=== PATIENT | female | born 1935 | race African-American/Black ===

== ENCOUNTER 2016-06-01 12:15 | Inpatient (IN) | payer MEDICARE, MEDICAID ==
[2016-06-01 14:36] LABS: LYMPHOCYTES # (AUTO) 1.7 X10^3/uL (1.3-2.9); MEAN CORPUSCULAR HEMOGLOBIN 27.6 pg (27.0-34.0)
[2016-06-01 14:45] LABS: HEMOGLOBIN A1C 6.6 % (4.5-6.2)
[2016-06-01 14:47] LABS: ALANINE AMINOTRANSFERASE 18 Units/L (12-78); ALBUMIN 3.4 g/dL (3.4-5.0); ALKALINE PHOSPHATASE 40 Units/L (46-116); ASPARTATE AMINO TRANSFERASE 17 Units/L (15-37); BLOOD UREA NITROGEN 20 mg/dL (7-18); CALCIUM 8.6 mg/dL (8.5-10.1); CARBON DIOXIDE 31.3 mmol/L (21-32); CHLORIDE 103 mmol/L (98-107); COR NA(FOR HYPERGLY) 145 mmol/L (136-145); CREATININE 1.46 mg/dL (0.55-1.02); GLUCOSE 219 mg/dL (65-99); MAGNESIUM 1.7 mg/dL (1.7-2.9); SODIUM 142 mmol/L (136-145); TOTAL PROTEIN 7.3 g/dL (6.4-8.2); eGFR BLACK RACES 45 (>60); eGFR NON BLACK RACES 37 (>60)
[2016-06-01] MEDS: NS 1000 ML 1,000 ML IV SCH (14:49)
[2016-06-01 15:03] LABS: BASOPHILS # (AUTO) 0.1 X10^3/uL (0.0-0.1); MEAN CORPUSCULAR VOLUME 84.9 fL (80.0-100.0); MONOCYTES # (AUTO) 0.5 x10^3/uL (0.3-0.8)
[2016-06-01 15:44] LABS: BASOPHILS % (AUTO) 1.2 % (0.2-1.0); EOSINOPHILS % (AUTO) 0.1 % (0.9-2.9); HEMATOCRIT 37.4 % (36.0-47.0); HEMOGLOBIN 12.1 g/dL (12.0-16.0); LYMPHOCYTES % (AUTO) 23.1 % (21.0-51.0); MEAN CORPUSCULAR HGB CONC 32.4 g/dL (33.0-35.0); MONOCYTES % (AUTO) 7.3 % (0.0-13.0); NEUTROPHILS # (AUTO) 5.1 x10^3/uL (2.2-4.8); NEUTROPHILS % (AUTO) 68.3 % (42.0-75.0); PLATELET COUNT 143 X10^3/uL (150.0-450.0); RED CELL DISTRIBUTION WIDTH 14.4 % (11.6-16.5); WHITE BLOOD COUNT 7.5 X10^3/uL (3.6-10.0)
[2016-06-01] MEDS: HumuLIN R SUBCUT PRN ×2 (16:49→20:42)
[2016-06-01] MEDS: SNACK - Diabetic Appropriate PO SCH (20:44)
[2016-06-02] MEDS: NS 1000 ML 1,000 ML IV SCH ×2 (04:58→14:07)
[2016-06-02 05:17] LABS: BASOPHILS % (AUTO) 0.3 % (0.2-1.0); EOSINOPHILS # (AUTO) 0.1 x10^3/uL (0.0-0.2); EOSINOPHILS % (AUTO) 1.1 % (0.9-2.9); LYMPHOCYTES # (AUTO) 2.8 X10^3/uL (1.3-2.9); LYMPHOCYTES % (AUTO) 38.8 % (21.0-51.0); MEAN CORPUSCULAR HGB CONC 33.2 g/dL (33.0-35.0); MEAN CORPUSCULAR VOLUME 84.3 fL (80.0-100.0); MEAN PLATELET VOLUME 11.1 fL (7.4-11.0); MONOCYTES # (AUTO) 0.6 x10^3/uL (0.3-0.8); MONOCYTES % (AUTO) 8.3 % (0.0-13.0); NEUTROPHILS # (AUTO) 3.7 x10^3/uL (2.2-4.8); NEUTROPHILS % (AUTO) 51.5 % (42.0-75.0); PLATELET COUNT 121 X10^3/uL (150.0-450.0); RED BLOOD COUNT 3.56 X10^6/uL (3.5-5.4); RED CELL DISTRIBUTION WIDTH 14.4 % (11.6-16.5); WHITE BLOOD COUNT 7.1 X10^3/uL (3.6-10.0)
[2016-06-02 05:45] LABS: ALANINE AMINOTRANSFERASE 16 Units/L (12-78); ALKALINE PHOSPHATASE 30 Units/L (46-116); ASPARTATE AMINO TRANSFERASE 17 Units/L (15-37); BLOOD UREA NITROGEN 21 mg/dL (7-18); CARBON DIOXIDE 26.2 mmol/L (21-32); CHLORIDE 105 mmol/L (98-107); COR CA(FOR HYPOALB) 8.8 mg/dL (8.5-10.1); CREATININE 0.97 mg/dL (0.55-1.02); GLUCOSE 97 mg/dL (65-99); SODIUM 141 mmol/L (136-145); TOTAL PROTEIN 6.2 g/dL (6.4-8.2); eGFR BLACK RACES > 60 (>60); eGFR NON BLACK RACES 59 (>60)
[2016-06-02] MEDS: HumuLIN R SUBCUT PRN ×3 (05:46→20:52)
--- NOTE | 2016-06-02 08:41 | DR.H&P ---
H&P - History & Physical for Day of: H&P Date: 06/08/16 - Chief Complaint Chief Complaint: WEAKNESS, DEHYDRATION, ATYPICAL BEHAVIOR CHANGES/AMS - Allergies Allergies/Adverse Reactions: Allergies Allergy/AdvReac Type Severity Reaction Status Date / Time No Known Drug Allergy Allergy Verified 06/01/16 13:56 - History of Present Illness History of Present Illness: 80 BF DIRECT ADMIT FROM DR WRAY OFFICE WITH CO GENERALIZED WEAKNESS AND MILD MS CHANGES. PT HAS HAD SOME GENERALIZED ABDOMINAL PAIN AND DIARRHEA. 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 PT HAS RECENTLY DECLINED BOTH PHYSICALLY AND MENTALLY. PT HAS DIFFUSE WEAKNESS AND POOR MOBILITY AND DECREASED PO INTAKE. PLAN TO ADMIT FOR EVALUAITON OF ACUTE WEAKNESS AND AMS, DISCUSSED PLACEMENT IN SENIOR CARE FOR REHAB THERAPY - Past Medical History Past Medical History: Anxiety, Arthritis, GERD, Hypertension, Schizophrenia - Past Surgical History Surgical History: Unknown - Social History Does patient currently use any type of tobacco product: No Have you used tobacco products in the last 12 months: No Type of Tobacco Use: Cigarettes How many years tobacco product used: 5 Does any household member use tobacco: No Alcohol Use: None Drug Use: Prescription Drugs - Medications Home Medications: Allopurinol [ZYLOPRIM tab 100 mg *] 1 tab PO DAILY 06/01/16 [History Confirmed 06/01/16] Cetirizine HCl [Zyrtec Allergy] 1 tab PO DAILY 06/01/16 [History Confirmed 06/01] Docusate Sodium [Colace] 1 tab PO DAILY 06/01/16 [History Confirmed 06/01/16] Donepezil Hydrochloride [ARICEPT TAB 10 MG *] 1 tab PO DAILY 06/01/16 [History Confirmed 06/01/16] Gabapentin [NEURONTIN CAP 300 mg *] 1 tab PO TID 06/01/16 [History Confirmed 12/08] Glimepiride [Amaryl] 2 tab PO BID 06/01/16 [History Confirmed 06/01/16] Hydrocodone-Acetaminophen [[place]ier 5-325 mg] 1 tab PO PRN PRN 06/01/16 [History Confirmed 06/01/16] Levothyroxine Sodium [SYNTHROID 25 mcg *] 1 tab PO DAILY 06/01/16 [History Confirmed 06/01/16] Lisinopril [Lisinopril] 1 tab PO DAILY 06/01/16 [History Confirmed 06/01/16] Omeprazole [PRILOSEC 20 MG *] 1 tab PO DAILY 06/01/16 [History Confirmed ] Risperidone [Risperidone] 1 tab PO DAILY 06/01/16 [History Confirmed 06/01/16] Simvastatin [ZOCOR 20 MG *] 1 tab PO BID 06/01/16 [History Confirmed 06/01/16] Tolterodine Tartrate [DETROL LA 4 MG EXT REL CAP *] 1 tab PO DAILY 06/01/16 [ History Confirmed 06/01/16] - Review of Systems Constitutional: Weakness Eyes: No Symptoms Reported ENT: No Symptoms Reported Respiratory: Shortness of Breath Cardiovascular: Light Headedness Gastrointestinal: Abdominal Pain, Diarrhea Genitourinary: Frequency Musculoskeletal: Back Pain Neurological: Weakness, Confusion - Physical Exam Vital Signs: Temperature 98.3 F Pulse Rate [Left Brachial] 68 Respiratory Rate 18 Blood Pressure [Left Arm] 135/62 O2 Sat by Pulse Oximetry 93 Oriented: Person Eyes: Normal Ear: Normal Nose: Normal Throat: Dry Respiratory: RLL Diminished, LLL Diminished Cardiovascular: Normal : Normal Auscultation: Bowel Sounds: Normal Palpation: Normal Tenderness: Epigastric Skin: Decreased Turgur Musculoskeletal: Back:Thoracic, Back:Lumbar Affect: Anxious Speech Pattern: Inappropriate - Assessment/Plan (1) Abdominal pain Qualifiers: Abdominal location: A Status: Acute Plan: ADMIT, LABS, XRAY. URINE CULTURE, IV ATBX AND IV HYDRATION. STOOL STUDIES. MONITOR (2) Diarrhea Qualifiers: Diarrhea type: D Status: Acute (3) Weakness Status: Acute Plan: SUPPORTIVE CARE, PT, DISCUSSED SENIOR CARE PLACEMENT (4) Altered mental status Qualifiers: Altered mental status type: A Coma depth: C Coma timing: C Status: Acute Plan: R/O INFECTIOUS PROCESS, IV HYDRATION, SUPPORTIVE CARE, PT
[2016-06-02] MEDS: PriLOSEC PO SCH (09:57)
[2016-06-02] MEDS: ZESTRIL TAB 40 MG PO SCH (09:57)
[2016-06-02] MEDS: ZOCOR TAB 20 MG PO SCH ×2 (09:57→20:45)
[2016-06-02] MEDS: RisperDAL TAB 1 MG PO SCH (09:57)
[2016-06-02] MEDS: SYNTHROID 25 mcg TAB PO SCH (09:57)
[2016-06-02] MEDS: ARICEPT TAB 10 MG PO SCH (09:57)
[2016-06-02 13:20] LABS: BILIRUBIN,URINE NEGATIVE (NEGATIVE); BLOOD/HEMOGLOBIN,URINE NEGATIVE (NEGATIVE); GLUCOSE, URINE NEGATIVE (NEGATIVE); KETONES,URINE NEGATIVE (NEGATIVE); LEUKOCYTE ESTERASE ,URINE 1+ (NEGATIVE); NITRITES,URINE NEGATIVE (NEGATIVE); PH,URINE 6.5 (5.0 - 8.0); PROTEIN,URINE NEGATIVE (NEGATIVE); UROBILINOGEN,URINE NORMAL (NORMAL)
[2016-06-02 13:27] LABS: AMORPHOUS SEDIMENT,UR TRACE /HPF (NEGATIVE); APPEARANCE,URINE CLEAR (CLEAR); BACTERIA,URINE NEGATIVE /HPF (NEGATIVE); COLOR,URINE YELLOW (YELLOW); RBC,URINE 0 /HPF (NEGATIVE); SQUAMOUS EPITHELIAL CELL,UR FEW /HPF (NEGATIVE)
[2016-06-02] MEDS: NEURONTIN CAP 300 MG PO SCH ×2 (13:51→20:59)
--- NOTE | 2016-06-02 19:01 | PCM.PROG ---
Progress Note - Progress Note for Day of Date: 06/02/16 - Subjective Subjective: N/V/D AND CHEST CONGESTION. PT STATES SHE HAS PRODUCTIVE COUGH AND CONTINUED WEAKNESS - Past Medical Family Social History Past Med/Fam/Surg Hx: No changes since H&P Allergies: Allergies No Known Drug Allergy Allergy (Verified 06/01/16 13:56) - Review of Systems ROS: No change since H&P - Vital Signs and I&O's Vital Signs: Temperature 97.6 F Pulse Rate [Left Brachial] 64 Respiratory Rate 20 Blood Pressure [Left Arm] 127/65 O2 Sat by Pulse Oximetry 98 Intake and Output: Intake & Output 05/31/16 06/01/16 06/02/16 06/03/16 11:59 11:59 11:59 11:59 Intake Total 1720 1063 Output Total 100 300 Balance 1620 763 - Physical Exam Oriented: Person Eyes: Normal Ear: Normal Nose: Normal Throat: Dry Respiratory: Wheezes (LOWER EXP) Cardiovascular: Normal : Normal Auscultation: Bowel Sounds: Normal Tenderness: Epigastric Skin: Decreased Turgur Musculoskeletal: Back:Thoracic, Back:Lumbar Affect: Anxious Speech Pattern: Inappropriate - Laboratory and Diagnostics Result Diagrams: 06/02/16 03:05 06/02/16 03:05 Labs: Laboratory WBC 7.1 X10^3/uL (3.6-10.0) 06/02/16 03:05 RBC 3.56 X10^6/uL (3.5-5.4) 06/02/16 03:05 Hgb 10.0 g/dL (12.0-16.0) L 06/02/16 03:05 Hct 30.0 % (36.0-47.0) L 06/02/16 03:05 MCV 84.3 fL (80.0-100.0) 06/02/16 03:05 MCH 28.0 pg (27.0-34.0) 06/02/16 03:05 MCHC 33.2 g/dL (33.0-35.0) 06/02/16 03:05 RDW 14.4 % (11.6-16.5) 06/02/16 03:05 Plt Count 121 X10^3/uL (150.0-450.0) L 06/02/16 03:05 Plt Count Comment Cancelled 06/01/16 14:25 MPV 11.1 fL (7.4-11.0) H 06/02/16 03:05 Neut % 51.5 % (42.0-75.0) 06/02/16 03:05 Lymph % 38.8 % (21.0-51.0) 06/02/16 03:05 [place] % 8.3 % (0.0-13.0) 06/02/16 03:05 Eos % 1.1 % (0.9-2.9) 06/02/16 03:05 Baso % 0.3 % (0.2-1.0) 06/02/16 03:05 Neut # 3.7 x10^3/uL (2.2-4.8) 06/02/16 03:05 Lymph # 2.8 X10^3/uL (1.3-2.9) 06/02/16 03:05 [place] # 0.6 x10^3/uL (0.3-0.8) 06/02/16 03:05 Eos # 0.1 x10^3/uL (0.0-0.2) 06/02/16 03:05 Baso # 0.0 X10^3/uL (0.0-0.1) 06/02/16 03:05 Absolute Nucleated RBC 0.0 /100WBC 06/02/16 03:05 Nucleated RBCs Cancelled 06/01/16 14:25 Atypical Lymphocytes Cancelled 06/01/16 14:25 Blast Cells Cancelled 06/01/16 14:25 Smudge Cells Cancelled 06/01/16 14:25 Toxic Granulation Cancelled 06/01/16 14:25 Dohle Bodies Cancelled 06/01/16 14:25 Dalila Rods Cancelled 06/01/16 14:25 Plt Clumps, EDTA Cancelled 06/01/16 14:25 Giant Platelets Cancelled 06/01/16 14:25 Plt Morphology Comment Cancelled 06/01/16 14:25 RBC Morphology Cancelled 06/01/16 14:25 Dimorphic RBCs Cancelled 06/01/16 14:25 Polychromasia Cancelled 06/01/16 14:25 Hypochromasia Cancelled 06/01/16 14:25 Poikilocytosis Cancelled 06/01/16 14:25 Basophilic Stippling Cancelled 06/01/16 14:25 Anisocytosis Cancelled 06/01/16 14:25 Microcytosis Cancelled 06/01/16 14:25 Macrocytosis Cancelled 06/01/16 14:25 Spherocytes Cancelled 06/01/16 14:25 Pappenheimer Bodies Cancelled 06/01/16 14:25 Sickle Cells Cancelled 06/01/16 14:25 Target Cells Cancelled 06/01/16 14:25 Tear Drop Cells Cancelled 06/01/16 14:25 Ovalocytes Cancelled 06/01/16 14:25 Stomatocytes Cancelled 06/01/16 14:25 Helmet Cells Cancelled 06/01/16 14:25 [place] Bodies Cancelled 06/01/16 14:25 [place] Rings Cancelled 06/01/16 14:25 Freddie Cells Cancelled 06/01/16 14:25 Crenated Cell Cancelled 06/01/16 14:25 Acanthocytes (Spur) Cancelled 06/01/16 14:25 Rouleaux Cancelled 06/01/16 14:25 Schistocytes Cancelled 06/01/16 14:25 Sodium 141 mmol/L (136-145) 06/02/16 03:05 Corrected Sodium TNP 06/02/16 03:05 Potassium 3.5 mmol/L (3.5-5.1) 06/02/16 03:05 Chloride 105 mmol/L (98-107) 06/02/16 03:05 Carbon Dioxide 26.2 mmol/L (21-32) 06/02/16 03:05 BUN 21 mg/dL (7-18) H 06/02/16 03:05 Creatinine 0.97 mg/dL (0.55-1.02) 06/02/16 03:05 Est GFR (MDRD) Af Amer > 60 (>60) 06/02/16 03:05 Est GFR (MDRD) Non-Af 59 (>60) 06/02/16 03:05 Glucose 97 mg/dL (65-99) 06/02/16 03:05 Hemoglobin A1c 6.6 % (4.5-6.2) H 06/01/16 14:25 Calcium 8.0 mg/dL (8.5-10.1) L 06/02/16 03:05 Corrected Calcium 8.8 mg/dL (8.5-10.1) 06/02/16 03:05 Magnesium 1.7 mg/dL (1.7-2.9) 06/01/16 14:25 Total Bilirubin 0.30 mg/dL (0.2-1.0) 06/02/16 03:05 AST 17 Units/L (15-37) 06/02/16 03:05 ALT 16 Units/L (12-78) 06/02/16 03:05 Alkaline Phosphatase 30 Units/L (46-116) L 06/02/16 03:05 Total Protein 6.2 g/dL (6.4-8.2) L 06/02/16 03:05 Albumin 3.0 g/dL (3.4-5.0) L 06/02/16 03:05 Globulin 3.2 g/dL (2.5-4.5) 06/02/16 03:05 Albumin/Globulin Ratio 0.9 Ratio (1.1-2.1) L 06/02/16 03:05 Specimen Type Clean catch urine 06/02/16 13:00 Urine Color Yellow (YELLOW) 06/02/16 13:00 Urine Appearance Clear (CLEAR) 06/02/16 13:00 Urine pH 6.5 (5.0 - 8.0) 06/02/16 13:00 Ur Specific [place] 1.010 (1.000-1.030) 06/02/16 13:00 Urine Protein Negative (NEGATIVE) 06/02/16 13:00 Urine Glucose (UA) Negative (NEGATIVE) 06/02/16 13:00 Urine Ketones Negative (NEGATIVE) 06/02/16 13:00 Urine Occult Blood Negative (NEGATIVE) 06/02/16 13:00 Urine Nitrite Negative (NEGATIVE) 06/02/16 13:00 Urine Bilirubin Negative (NEGATIVE) 06/02/16 13:00 Urine Urobilinogen Normal (NORMAL) 06/02/16 13:00 Ur Leukocyte Esterase 1+ (NEGATIVE) 06/02/16 13:00 Urine RBC 0 /HPF (NEGATIVE) 06/02/16 13:00 Urine WBC 0-2 /HPF (NEGATIVE) 06/02/16 13:00 Ur Squamous Epith Cells Few /HPF (NEGATIVE) 06/02/16 13:00 Amorphous Sediment Trace /HPF (NEGATIVE) 06/02/16 13:00 Urine Bacteria Negative /HPF (NEGATIVE) 06/02/16 13:00 Ur Culture Indicated? No/not indicated 06/02/16 13:00 - Plan (1) COPD (chronic obstructive pulmonary disease) with acute bronchitis Status: Acute Plan: RESP CONSULT, IV ATBX. REPEAT AM LABS (2) Abdominal pain Status: Acute Qualifiers: Abdominal location: A Plan: LABS, XRAY. URINE CULTURE, IV ATBX AND IV HYDRATION. STOOL STUDIES. MONITOR (3) Diarrhea Status: Acute Qualifiers: Diarrhea type: D (4) Weakness Status: Acute Plan: SUPPORTIVE CARE, PT, DISCUSSED CORRECTION PLACEMENT (5) Altered mental status Status: Acute Qualifiers: Altered mental status type: A Coma depth: C Coma timing: C Plan: R/O INFECTIOUS PROCESS, IV HYDRATION, SUPPORTIVE CARE, PT
[2016-06-02] MEDS ORDERED: DUONEB 0.5 MG/3 MG ONE (20:22)
[2016-06-02] MEDS: ROBITUSSIN (PLAIN) PO SCH (20:44)
[2016-06-02] MEDS: SNACK - Diabetic Appropriate PO SCH (20:45)
[2016-06-02] MEDS: ROCEPHIN VIAL 1 GM 1 GM in NS 50 ML IV + SPIKE MINIBAG* 50 ML IV SCH (20:52)
[2016-06-02] MEDS: DUONEB 0.5 MG/3 MG NEB SCH (21:18)
[2016-06-03 05:26] LABS: BASOPHILS % (AUTO) 0.3 % (0.2-1.0); EOSINOPHILS # (AUTO) 0.1 x10^3/uL (0.0-0.2); EOSINOPHILS % (AUTO) 2.4 % (0.9-2.9); HEMATOCRIT 28.2 % (36.0-47.0); HEMOGLOBIN 9.4 g/dL (12.0-16.0); LYMPHOCYTES # (AUTO) 3.2 X10^3/uL (1.3-2.9); LYMPHOCYTES % (AUTO) 52.5 % (21.0-51.0); MEAN CORPUSCULAR HGB CONC 33.2 g/dL (33.0-35.0); MEAN CORPUSCULAR VOLUME 84.5 fL (80.0-100.0); MEAN PLATELET VOLUME 10.6 fL (7.4-11.0); MONOCYTES # (AUTO) 0.5 x10^3/uL (0.3-0.8); MONOCYTES % (AUTO) 7.6 % (0.0-13.0); NEUTROPHILS # (AUTO) 2.2 x10^3/uL (2.2-4.8); NEUTROPHILS % (AUTO) 37.2 % (42.0-75.0); PLATELET COUNT 115 X10^3/uL (150.0-450.0); RED BLOOD COUNT 3.34 X10^6/uL (3.5-5.4); RED CELL DISTRIBUTION WIDTH 14.7 % (11.6-16.5)
[2016-06-03 05:35] LABS: ALANINE AMINOTRANSFERASE 14 Units/L (12-78); ALBUMIN 2.7 g/dL (3.4-5.0); ALKALINE PHOSPHATASE 30 Units/L (46-116); ASPARTATE AMINO TRANSFERASE 16 Units/L (15-37); BLOOD UREA NITROGEN 11 mg/dL (7-18); CALCIUM 7.7 mg/dL (8.5-10.1); CHLORIDE 105 mmol/L (98-107); COR CA(FOR HYPOALB) 8.7 mg/dL (8.5-10.1); COR NA(FOR HYPERGLY) 143 mmol/L (136-145); CREATININE 0.89 mg/dL (0.55-1.02); GLUCOSE 224 mg/dL (65-99); SODIUM 140 mmol/L (136-145); TOTAL PROTEIN 5.8 g/dL (6.4-8.2); eGFR BLACK RACES > 60 (>60); eGFR NON BLACK RACES > 60 (>60)
[2016-06-03] MEDS: NEURONTIN CAP 300 MG PO SCH ×3 (06:08→21:04)
[2016-06-03] MEDS: HumuLIN R SUBCUT PRN ×3 (06:13→21:05)
--- NOTE | 2016-06-03 07:28 | RAD ---
HISTORY: COPD, shortness of breath Study: Single-view chest, done portably Comparison: No priors Findings: Trachea is midline. Heart size is at the upper limits of normal with aortic uncoiling. Lungs and ple ural spaces are clear. Osseous structures are intact. IMPRESSION: Hypertensive configuration. No acute cardiopulmonary disease. Reported By:
[2016-06-03] MEDS: ROCEPHIN VIAL 1 GM 1 GM in NS 50 ML IV + SPIKE MINIBAG* 50 ML IV SCH (08:45)
[2016-06-03] MEDS: ROBITUSSIN (PLAIN) PO SCH ×4 (08:45→21:04)
[2016-06-03] MEDS: DUONEB 0.5 MG/3 MG NEB SCH ×4 (08:46→20:34)
[2016-06-03] MEDS: ZESTRIL TAB 40 MG PO SCH (08:47)
[2016-06-03] MEDS: SYNTHROID 25 mcg TAB PO SCH (08:47)
[2016-06-03] MEDS: PriLOSEC PO SCH (08:47)
[2016-06-03] MEDS: ARICEPT TAB 10 MG PO SCH (08:48)
[2016-06-03] MEDS: ZOCOR TAB 20 MG PO SCH ×2 (08:48→21:03)
[2016-06-03] MEDS: RisperDAL TAB 1 MG PO SCH (08:48)
[2016-06-03 10:50] VITALS: BMI 24.1
--- NOTE | 2016-06-03 18:50 | PCM.PROG ---
Progress Note - Progress Note for Day of Date: 06/03/16 - Subjective Subjective: 80-YEAR-OLD BLACK FEMALE WHO WAS ADMITTED ON wednesday WITH COMPLAINTS OF NAUSEA VOMITING DIARRHEA AND GENERALIZED WEAKNESS. pATIENT ALSO HAS A HISTORY OF MILD copd AND COMPLAINTS OF INCREASED PRODUCTIVE COUGH AND CHEST CONGESTION. pATIENT WAS STARTED ON iv ANTIBIOTICS AND RESPIRATORY THERAPY. pATIENT REPORTS IMPROVED NAUSEA AND VOMITING AND UNABLE TO EAT THIS A.M. wE' LL CONTINUE iv ANTIBIOTICS AND RESPIRATORY THERAPY. dISCUSSED REHABILITATION PLACEMENT WITH CASE MANAGEMENT - Past Medical Family Social History Past Med/Fam/Surg Hx: No changes since H&P Allergies: Allergies No Known Drug Allergy Allergy (Verified 06/01/16 13:56) - Review of Systems ROS: No change since H&P - Vital Signs and I&O's Vital Signs: Temperature 97.6 F Pulse Rate [Left Brachial] 60 Pulse Rate 63 Respiratory Rate 18 Blood Pressure [Left Arm] 121/64 O2 Sat by Pulse Oximetry 98 Intake and Output: Intake & Output 06/01/16 06/02/16 06/03/16 06/04/16 11:59 11:59 11:59 11:59 Intake Total 1720 1403 1110 Output Total 100 300 Balance 1620 1103 1110 - Physical Exam Oriented: Person Eyes: Normal Ear: Normal Nose: Normal Throat: Dry Respiratory: Wheezes (LOWER EXP) Cardiovascular: Normal : Normal Auscultation: Bowel Sounds: Normal Tenderness: Epigastric Skin: Decreased Turgur Musculoskeletal: Back:Thoracic, Back:Lumbar Affect: Anxious Speech Pattern: Clear, Appropriate - Laboratory and Diagnostics Result Diagrams: 06/03/16 03:25 06/03/16 03:25 Labs: Laboratory WBC 6.0 X10^3/uL (3.6-10.0) 06/03/16 03:25 RBC 3.34 X10^6/uL (3.5-5.4) L 06/03/16 03:25 Hgb 9.4 g/dL (12.0-16.0) L 06/03/16 03:25 Hct 28.2 % (36.0-47.0) L 06/03/16 03:25 MCV 84.5 fL (80.0-100.0) 06/03/16 03:25 MCH 28.0 pg (27.0-34.0) 06/03/16 03:25 MCHC 33.2 g/dL (33.0-35.0) 06/03/16 03:25 RDW 14.7 % (11.6-16.5) 06/03/16 03:25 Plt Count 115 X10^3/uL (150.0-450.0) L 06/03/16 03:25 Plt Count Comment Cancelled 06/01/16 14:25 MPV 10.6 fL (7.4-11.0) 06/03/16 03:25 Neut % 37.2 % (42.0-75.0) L 06/03/16 03:25 Lymph % 52.5 % (21.0-51.0) H 06/03/16 03:25 [place] % 7.6 % (0.0-13.0) 06/03/16 03:25 Eos % 2.4 % (0.9-2.9) 06/03/16 03:25 Baso % 0.3 % (0.2-1.0) 06/03/16 03:25 Neut # 2.2 x10^3/uL (2.2-4.8) 06/03/16 03:25 Lymph # 3.2 X10^3/uL (1.3-2.9) H 06/03/16 03:25 [place] # 0.5 x10^3/uL (0.3-0.8) 06/03/16 03:25 Eos # 0.1 x10^3/uL (0.0-0.2) 06/03/16 03:25 Baso # 0.0 X10^3/uL (0.0-0.1) 06/03/16 03:25 Absolute Nucleated RBC 0.1 /100WBC 06/03/16 03:25 Nucleated RBCs Cancelled 06/01/16 14:25 Atypical Lymphocytes Cancelled 06/01/16 14:25 Blast Cells Cancelled 06/01/16 14:25 Smudge Cells Cancelled 06/01/16 14:25 Toxic Granulation Cancelled 06/01/16 14:25 Dohle Bodies Cancelled 06/01/16 14:25 Dalila Rods Cancelled 06/01/16 14:25 Plt Clumps, EDTA Cancelled 06/01/16 14:25 Giant Platelets Cancelled 06/01/16 14:25 Plt Morphology Comment Cancelled 06/01/16 14:25 RBC Morphology Cancelled 06/01/16 14:25 Dimorphic RBCs Cancelled 06/01/16 14:25 Polychromasia Cancelled 06/01/16 14:25 Hypochromasia Cancelled 06/01/16 14:25 Poikilocytosis Cancelled 06/01/16 14:25 Basophilic Stippling Cancelled 06/01/16 14:25 Anisocytosis Cancelled 06/01/16 14:25 Microcytosis Cancelled 06/01/16 14:25 Macrocytosis Cancelled 06/01/16 14:25 Spherocytes Cancelled 06/01/16 14:25 Pappenheimer Bodies Cancelled 06/01/16 14:25 Sickle Cells Cancelled 06/01/16 14:25 Target Cells Cancelled 06/01/16 14:25 Tear Drop Cells Cancelled 06/01/16 14:25 Ovalocytes Cancelled 06/01/16 14:25 Stomatocytes Cancelled 06/01/16 14:25 Helmet Cells Cancelled 06/01/16 14:25 [place] Bodies Cancelled 06/01/16 14:25 [place] Rings Cancelled 06/01/16 14:25 Freddie Cells Cancelled 06/01/16 14:25 Crenated Cell Cancelled 06/01/16 14:25 Acanthocytes (Spur) Cancelled 06/01/16 14:25 Rouleaux Cancelled 06/01/16 14:25 Schistocytes Cancelled 06/01/16 14:25 Sodium 140 mmol/L (136-145) 06/03/16 03:25 Corrected Sodium 143 mmol/L (136-145) 06/03/16 03:25 Potassium 3.4 mmol/L (3.5-5.1) L 06/03/16 03:25 Chloride 105 mmol/L (98-107) 06/03/16 03:25 Carbon Dioxide 28.0 mmol/L (21-32) 06/03/16 03:25 BUN 11 mg/dL (7-18) 06/03/16 03:25 Creatinine 0.89 mg/dL (0.55-1.02) 06/03/16 03:25 Est GFR (MDRD) Af Amer > 60 (>60) 06/03/16 03:25 Est GFR (MDRD) Non-Af > 60 (>60) 06/03/16 03:25 Glucose 224 mg/dL (65-99) H 06/03/16 03:25 Hemoglobin A1c 6.6 % (4.5-6.2) H 06/01/16 14:25 Calcium 7.7 mg/dL (8.5-10.1) L 06/03/16 03:25 Corrected Calcium 8.7 mg/dL (8.5-10.1) 06/03/16 03:25 Magnesium 1.7 mg/dL (1.7-2.9) 06/01/16 14:25 Total Bilirubin 0.20 mg/dL (0.2-1.0) 06/03/16 03:25 AST 16 Units/L (15-37) 06/03/16 03:25 ALT 14 Units/L (12-78) 06/03/16 03:25 Alkaline Phosphatase 30 Units/L (46-116) L 06/03/16 03:25 Total Protein 5.8 g/dL (6.4-8.2) L 06/03/16 03:25 Albumin 2.7 g/dL (3.4-5.0) L 06/03/16 03:25 Globulin 3.1 g/dL (2.5-4.5) 06/03/16 03:25 Albumin/Globulin Ratio 0.9 Ratio (1.1-2.1) L 06/03/16 03:25 Specimen Type Clean catch urine 06/02/16 13:00 Urine Color Yellow (YELLOW) 06/02/16 13:00 Urine Appearance Clear (CLEAR) 06/02/16 13:00 Urine pH 6.5 (5.0 - 8.0) 06/02/16 13:00 Ur Specific [place] 1.010 (1.000-1.030) 06/02/16 13:00 Urine Protein Negative (NEGATIVE) 06/02/16 13:00 Urine Glucose (UA) Negative (NEGATIVE) 06/02/16 13:00 Urine Ketones Negative (NEGATIVE) 06/02/16 13:00 Urine Occult Blood Negative (NEGATIVE) 06/02/16 13:00 Urine Nitrite Negative (NEGATIVE) 06/02/16 13:00 Urine Bilirubin Negative (NEGATIVE) 06/02/16 13:00 Urine Urobilinogen Normal (NORMAL) 06/02/16 13:00 Ur Leukocyte Esterase 1+ (NEGATIVE) 06/02/16 13:00 Urine RBC 0 /HPF (NEGATIVE) 06/02/16 13:00 Urine WBC 0-2 /HPF (NEGATIVE) 06/02/16 13:00 Ur Squamous Epith Cells Few /HPF (NEGATIVE) 06/02/16 13:00 Amorphous Sediment Trace /HPF (NEGATIVE) 06/02/16 13:00 Urine Bacteria Negative /HPF (NEGATIVE) 06/02/16 13:00 Ur Culture Indicated? No/not indicated 06/02/16 13:00 - Plan (1) COPD (chronic obstructive pulmonary disease) with acute bronchitis Status: Acute Plan: RESP CONSULT, IV ATBX. REPEAT AM LABS (2) Abdominal pain Status: Acute Qualifiers: Abdominal location: A Plan: LABS, XRAY. URINE CULTURE, IV ATBX AND IV HYDRATION. STOOL STUDIES. MONITOR (3) Diarrhea Status: Acute Qualifiers: Diarrhea type: D (4) Weakness Status: Acute Plan: SUPPORTIVE CARE, PT, DISCUSSED USP PLACEMENT (5) Altered mental status Status: Acute Qualifiers: Altered mental status type: A Coma depth: C Coma timing: C Plan: R/O INFECTIOUS PROCESS, IV HYDRATION, SUPPORTIVE CARE, PT
[2016-06-03] MEDS: SNACK - Diabetic Appropriate PO SCH (21:04)
[2016-06-04 05:33] LABS: ALANINE AMINOTRANSFERASE 14 Units/L (12-78); ALBUMIN 2.6 g/dL (3.4-5.0); ALKALINE PHOSPHATASE 34 Units/L (46-116); ASPARTATE AMINO TRANSFERASE 13 Units/L (15-37); BLOOD UREA NITROGEN 9 mg/dL (7-18); CALCIUM 7.8 mg/dL (8.5-10.1); CARBON DIOXIDE 29.1 mmol/L (21-32); CHLORIDE 108 mmol/L (98-107); COR CA(FOR HYPOALB) 8.9 mg/dL (8.5-10.1); COR NA(FOR HYPERGLY) 145 mmol/L (136-145); GLUCOSE 156 mg/dL (65-99); SODIUM 144 mmol/L (136-145); TOTAL PROTEIN 5.7 g/dL (6.4-8.2); eGFR BLACK RACES > 60 (>60); eGFR NON BLACK RACES > 60 (>60)
[2016-06-04 05:41] LABS: BASOPHILS % (AUTO) 0.5 % (0.2-1.0); EOSINOPHILS # (AUTO) 0.1 x10^3/uL (0.0-0.2); EOSINOPHILS % (AUTO) 2.4 % (0.9-2.9); HEMATOCRIT 28.5 % (36.0-47.0); HEMOGLOBIN 9.3 g/dL (12.0-16.0); LYMPHOCYTES # (AUTO) 2.1 X10^3/uL (1.3-2.9); LYMPHOCYTES % (AUTO) 40.5 % (21.0-51.0); MEAN CORPUSCULAR HEMOGLOBIN 27.8 pg (27.0-34.0); MEAN CORPUSCULAR HGB CONC 32.5 g/dL (33.0-35.0); MEAN CORPUSCULAR VOLUME 85.7 fL (80.0-100.0); MEAN PLATELET VOLUME 10.8 fL (7.4-11.0); MONOCYTES # (AUTO) 0.4 x10^3/uL (0.3-0.8); MONOCYTES % (AUTO) 8.4 % (0.0-13.0); NEUTROPHILS # (AUTO) 2.5 x10^3/uL (2.2-4.8); NEUTROPHILS % (AUTO) 48.2 % (42.0-75.0); PLATELET COUNT 111 X10^3/uL (150.0-450.0); RED BLOOD COUNT 3.33 X10^6/uL (3.5-5.4); RED CELL DISTRIBUTION WIDTH 14.8 % (11.6-16.5); WHITE BLOOD COUNT 5.2 X10^3/uL (3.6-10.0)
[2016-06-04] MEDS: NEURONTIN CAP 300 MG PO SCH ×3 (05:57→23:35)
[2016-06-04] MEDS: HumuLIN R SUBCUT PRN (05:58)
[2016-06-04] MEDS: DUONEB 0.5 MG/3 MG NEB SCH ×4 (08:37→20:30)
[2016-06-04] MEDS: ROCEPHIN VIAL 1 GM 1 GM in NS 50 ML IV + SPIKE MINIBAG* 50 ML IV SCH (09:28)
[2016-06-04] MEDS: ROBITUSSIN (PLAIN) PO SCH ×4 (09:28→20:00)
[2016-06-04] MEDS: SYNTHROID 25 mcg TAB PO SCH (09:30)
[2016-06-04] MEDS: RisperDAL TAB 1 MG PO SCH (09:30)
[2016-06-04] MEDS: ZOCOR TAB 20 MG PO SCH ×2 (09:30→20:00)
[2016-06-04] MEDS: ARICEPT TAB 10 MG PO SCH (09:30)
[2016-06-04] MEDS: PriLOSEC PO SCH (09:30)
[2016-06-04] MEDS: ZESTRIL TAB 40 MG PO SCH (09:30)
--- NOTE | 2016-06-04 15:19 | PCM.PROG ---
Progress Note - Progress Note for Day of Date: 06/04/16 - Subjective Subjective: 80-YEAR-OLD BLACK FEMALE WHO WAS ADMITTED ON wednesday WITH COMPLAINTS OF NAUSEA VOMITING DIARRHEA AND GENERALIZED WEAKNESS. pATIENT ALSO HAS A HISTORY OF MILD copd AND COMPLAINTS OF INCREASED PRODUCTIVE COUGH AND CHEST CONGESTION. pATIENT WAS STARTED ON iv ANTIBIOTICS AND RESPIRATORY THERAPY. pATIENT REPORTS IMPROVED NAUSEA AND VOMITING AND UNABLE TO EAT THIS A.M. wE' LL CONTINUE iv ANTIBIOTICS AND RESPIRATORY THERAPY. dISCUSSED REHABILITATION PLACEMENT WITH CASE MANAGEMENT - Past Medical Family Social History Past Med/Fam/Surg Hx: No changes since H&P Allergies: Allergies No Known Drug Allergy Allergy (Verified 06/01/16 13:56) - Review of Systems ROS: No change since H&P - Vital Signs and I&O's Vital Signs: Temperature 98.0 F Pulse Rate [Left Brachial] 68 Pulse Rate 82 Respiratory Rate 18 Blood Pressure [Left Arm] 156/73 O2 Sat by Pulse Oximetry 99 Intake and Output: Intake & Output 06/02/16 06/03/16 06/04/16 06/05/16 11:59 11:59 11:59 11:59 Intake Total 1720 1403 1650 Output Total 100 300 Balance 1620 1103 1650 - Physical Exam Oriented: Person Eyes: Normal Ear: Normal Nose: Normal Throat: Dry Respiratory: Wheezes (LOWER EXP) Cardiovascular: Normal : Normal Auscultation: Bowel Sounds: Normal Tenderness: Epigastric Skin: Decreased Turgur Musculoskeletal: Back:Thoracic, Back:Lumbar Affect: Anxious Speech Pattern: Clear, Appropriate - Laboratory and Diagnostics Result Diagrams: 06/04/16 03:15 06/04/16 03:15 Labs: 06/02/16 09:40 Blood Blood Culture - Preliminary 06/02/16 09:10 Blood Blood Culture - Preliminary Laboratory WBC 5.2 X10^3/uL (3.6-10.0) 06/04/16 03:15 RBC 3.33 X10^6/uL (3.5-5.4) L 06/04/16 03:15 Hgb 9.3 g/dL (12.0-16.0) L 06/04/16 03:15 Hct 28.5 % (36.0-47.0) L 06/04/16 03:15 MCV 85.7 fL (80.0-100.0) 06/04/16 03:15 MCH 27.8 pg (27.0-34.0) 06/04/16 03:15 MCHC 32.5 g/dL (33.0-35.0) L 06/04/16 03:15 RDW 14.8 % (11.6-16.5) 06/04/16 03:15 Plt Count 111 X10^3/uL (150.0-450.0) L 06/04/16 03:15 Plt Count Comment Cancelled 06/01/16 14:25 MPV 10.8 fL (7.4-11.0) 06/04/16 03:15 Neut % 48.2 % (42.0-75.0) 06/04/16 03:15 Lymph % 40.5 % (21.0-51.0) 06/04/16 03:15 [place] % 8.4 % (0.0-13.0) 06/04/16 03:15 Eos % 2.4 % (0.9-2.9) 06/04/16 03:15 Baso % 0.5 % (0.2-1.0) 06/04/16 03:15 Neut # 2.5 x10^3/uL (2.2-4.8) 06/04/16 03:15 Lymph # 2.1 X10^3/uL (1.3-2.9) 06/04/16 03:15 [place] # 0.4 x10^3/uL (0.3-0.8) 06/04/16 03:15 Eos # 0.1 x10^3/uL (0.0-0.2) 06/04/16 03:15 Baso # 0.0 X10^3/uL (0.0-0.1) 06/04/16 03:15 Absolute Nucleated RBC 0.2 /100WBC 06/04/16 03:15 Nucleated RBCs Cancelled 06/01/16 14:25 Atypical Lymphocytes Cancelled 06/01/16 14:25 Blast Cells Cancelled 06/01/16 14:25 Smudge Cells Cancelled 06/01/16 14:25 Toxic Granulation Cancelled 06/01/16 14:25 Dohle Bodies Cancelled 06/01/16 14:25 Dalila Rods Cancelled 06/01/16 14:25 Plt Clumps, EDTA Cancelled 06/01/16 14:25 Giant Platelets Cancelled 06/01/16 14:25 Plt Morphology Comment Cancelled 06/01/16 14:25 RBC Morphology Cancelled 06/01/16 14:25 Dimorphic RBCs Cancelled 06/01/16 14:25 Polychromasia Cancelled 06/01/16 14:25 Hypochromasia Cancelled 06/01/16 14:25 Poikilocytosis Cancelled 06/01/16 14:25 Basophilic Stippling Cancelled 06/01/16 14:25 Anisocytosis Cancelled 06/01/16 14:25 Microcytosis Cancelled 06/01/16 14:25 Macrocytosis Cancelled 06/01/16 14:25 Spherocytes Cancelled 06/01/16 14:25 Pappenheimer Bodies Cancelled 06/01/16 14:25 Sickle Cells Cancelled 06/01/16 14:25 Target Cells Cancelled 06/01/16 14:25 Tear Drop Cells Cancelled 06/01/16 14:25 Ovalocytes Cancelled 06/01/16 14:25 Stomatocytes Cancelled 06/01/16 14:25 Helmet Cells Cancelled 06/01/16 14:25 [place] Bodies Cancelled 06/01/16 14:25 [place] Rings Cancelled 06/01/16 14:25 Freddie Cells Cancelled 06/01/16 14:25 Crenated Cell Cancelled 06/01/16 14:25 Acanthocytes (Spur) Cancelled 06/01/16 14:25 Rouleaux Cancelled 06/01/16 14:25 Schistocytes Cancelled 06/01/16 14:25 Sodium 144 mmol/L (136-145) 06/04/16 03:15 Corrected Sodium 145 mmol/L (136-145) 06/04/16 03:15 Potassium 3.7 mmol/L (3.5-5.1) 06/04/16 03:15 Chloride 108 mmol/L (98-107) H 06/04/16 03:15 Carbon Dioxide 29.1 mmol/L (21-32) 06/04/16 03:15 BUN 9 mg/dL (7-18) 06/04/16 03:15 Creatinine 0.90 mg/dL (0.55-1.02) 06/04/16 03:15 Est GFR (MDRD) Af Amer > 60 (>60) 06/04/16 03:15 Est GFR (MDRD) Non-Af > 60 (>60) 06/04/16 03:15 Glucose 156 mg/dL (65-99) H 06/04/16 03:15 Hemoglobin A1c 6.6 % (4.5-6.2) H 06/01/16 14:25 Calcium 7.8 mg/dL (8.5-10.1) L 06/04/16 03:15 Corrected Calcium 8.9 mg/dL (8.5-10.1) 06/04/16 03:15 Magnesium 1.7 mg/dL (1.7-2.9) 06/01/16 14:25 Total Bilirubin 0.10 mg/dL (0.2-1.0) L 06/04/16 03:15 AST 13 Units/L (15-37) L 06/04/16 03:15 ALT 14 Units/L (12-78) 06/04/16 03:15 Alkaline Phosphatase 34 Units/L (46-116) L 06/04/16 03:15 Total Protein 5.7 g/dL (6.4-8.2) L 06/04/16 03:15 Albumin 2.6 g/dL (3.4-5.0) L 06/04/16 03:15 Globulin 3.1 g/dL (2.5-4.5) 06/04/16 03:15 Albumin/Globulin Ratio 0.8 Ratio (1.1-2.1) L 06/04/16 03:15 Specimen Type Clean catch urine 06/02/16 13:00 Urine Color Yellow (YELLOW) 06/02/16 13:00 Urine Appearance Clear (CLEAR) 06/02/16 13:00 Urine pH 6.5 (5.0 - 8.0) 06/02/16 13:00 Ur Specific Icard 1.010 (1.000-1.030) 06/02/16 13:00 Urine Protein Negative (NEGATIVE) 06/02/16 13:00 Urine Glucose (UA) Negative (NEGATIVE) 06/02/16 13:00 Urine Ketones Negative (NEGATIVE) 06/02/16 13:00 Urine Occult Blood Negative (NEGATIVE) 06/02/16 13:00 Urine Nitrite Negative (NEGATIVE) 06/02/16 13:00 Urine Bilirubin Negative (NEGATIVE) 06/02/16 13:00 Urine Urobilinogen Normal (NORMAL) 06/02/16 13:00 Ur Leukocyte Esterase 1+ (NEGATIVE) 06/02/16 13:00 Urine RBC 0 /HPF (NEGATIVE) 06/02/16 13:00 Urine WBC 0-2 /HPF (NEGATIVE) 06/02/16 13:00 Ur Squamous Epith Cells Few /HPF (NEGATIVE) 06/02/16 13:00 Amorphous Sediment Trace /HPF (NEGATIVE) 06/02/16 13:00 Urine Bacteria Negative /HPF (NEGATIVE) 06/02/16 13:00 Ur Culture Indicated? No/not indicated 06/02/16 13:00 - Plan (1) COPD (chronic obstructive pulmonary disease) with acute bronchitis Status: Acute Plan: RESP CONSULT, IV ATBX. REPEAT AM LABS (2) Abdominal pain Status: Acute Qualifiers: Abdominal location: A Plan: LABS, XRAY. URINE CULTURE, IV ATBX AND IV HYDRATION. STOOL STUDIES. MONITOR (3) Diarrhea Status: Acute Qualifiers: Diarrhea type: D (4) Weakness Status: Acute Plan: SUPPORTIVE CARE, PT, DISCUSSED [facility] (5) Altered mental status Status: Acute Qualifiers: Altered mental status type: A Coma depth: C Coma timing: C Plan: R/O INFECTIOUS PROCESS, IV HYDRATION, SUPPORTIVE CARE, PT
[2016-06-04] MEDS: NS 1000 ML 1,000 ML IV SCH ×2 (19:57→20:03)
[2016-06-04] MEDS: AMARYL TAB 4 MG PO SCH (19:57)
[2016-06-04] MEDS: SNACK - Diabetic Appropriate PO SCH ×2 (20:02)
[2016-06-05] MEDS: NEURONTIN CAP 300 MG PO SCH ×3 (06:16→23:26)
[2016-06-05 06:26] LABS: ALANINE AMINOTRANSFERASE 13 Units/L (12-78); ALBUMIN 2.7 g/dL (3.4-5.0); ALKALINE PHOSPHATASE 33 Units/L (46-116); ASPARTATE AMINO TRANSFERASE 11 Units/L (15-37); BASOPHILS % (AUTO) 0.4 % (0.2-1.0); BLOOD UREA NITROGEN 12 mg/dL (7-18); CALCIUM 7.8 mg/dL (8.5-10.1); CARBON DIOXIDE 29.1 mmol/L (21-32); CHLORIDE 107 mmol/L (98-107); COR CA(FOR HYPOALB) 8.8 mg/dL (8.5-10.1); CREATININE 0.84 mg/dL (0.55-1.02); EOSINOPHILS # (AUTO) 0.1 x10^3/uL (0.0-0.2); EOSINOPHILS % (AUTO) 2.1 % (0.9-2.9); GLUCOSE 83 mg/dL (65-99); HEMATOCRIT 27.9 % (36.0-47.0); HEMOGLOBIN 9.1 g/dL (12.0-16.0); LYMPHOCYTES # (AUTO) 2.8 X10^3/uL (1.3-2.9); LYMPHOCYTES % (AUTO) 41.6 % (21.0-51.0); MEAN CORPUSCULAR HEMOGLOBIN 27.9 pg (27.0-34.0); MEAN CORPUSCULAR HGB CONC 32.8 g/dL (33.0-35.0); MEAN CORPUSCULAR VOLUME 85.3 fL (80.0-100.0); MEAN PLATELET VOLUME 10.8 fL (7.4-11.0); MONOCYTES # (AUTO) 0.7 x10^3/uL (0.3-0.8); MONOCYTES % (AUTO) 9.9 % (0.0-13.0); NEUTROPHILS # (AUTO) 3.1 x10^3/uL (2.2-4.8); PLATELET COUNT 117 X10^3/uL (150.0-450.0); RED BLOOD COUNT 3.27 X10^6/uL (3.5-5.4); RED CELL DISTRIBUTION WIDTH 14.6 % (11.6-16.5); SODIUM 142 mmol/L (136-145); TOTAL PROTEIN 5.8 g/dL (6.4-8.2); WHITE BLOOD COUNT 6.6 X10^3/uL (3.6-10.0); eGFR BLACK RACES > 60 (>60); eGFR NON BLACK RACES > 60 (>60)
[2016-06-05] MEDS: DUONEB 0.5 MG/3 MG NEB SCH ×4 (08:30→20:39)
[2016-06-05] MEDS: ROCEPHIN VIAL 1 GM 1 GM in NS 50 ML IV + SPIKE MINIBAG* 50 ML IV SCH (11:08)
[2016-06-05] MEDS: ROBITUSSIN (PLAIN) PO SCH ×4 (11:09→20:45)
[2016-06-05] MEDS: PriLOSEC PO SCH (11:10)
[2016-06-05] MEDS: AMARYL TAB 4 MG PO SCH (11:10)
[2016-06-05] MEDS: SYNTHROID 25 mcg TAB PO SCH (11:10)
[2016-06-05] MEDS: ZESTRIL TAB 40 MG PO SCH (11:10)
[2016-06-05] MEDS: RisperDAL TAB 1 MG PO SCH (11:10)
[2016-06-05] MEDS: ZOCOR TAB 20 MG PO SCH ×2 (11:10→20:45)
[2016-06-05] MEDS: ARICEPT TAB 10 MG PO SCH (11:11)
--- NOTE | 2016-06-05 14:52 | PCM.PROG ---
Progress Note - Progress Note for Day of Date: 06/05/16 - Subjective Subjective: 80-YEAR-OLD BLACK FEMALE WHO WAS ADMITTED ON wednesday WITH COMPLAINTS OF NAUSEA VOMITING DIARRHEA AND GENERALIZED WEAKNESS. pATIENT ALSO HAS A HISTORY OF MILD copd AND COMPLAINTS OF INCREASED PRODUCTIVE COUGH AND CHEST CONGESTION. pATIENT WAS STARTED ON iv ANTIBIOTICS AND RESPIRATORY THERAPY. pATIENT REPORTS resolved NAUSEA AND VOMITING. wE'LL CONTINUE iv ANTIBIOTICS AND RESPIRATORY THERAPY. dISCUSSED REHABILITATION PLACEMENT WITH CASE MANAGEMENT, RESIDENTIAL PLACEMENT IS PENDING - Past Medical Family Social History Past Med/Fam/Surg Hx: No changes since H&P Allergies: Allergies No Known Drug Allergy Allergy (Verified 06/01/16 13:56) - Review of Systems ROS: No change since H&P - Vital Signs and I&O's Vital Signs: Temperature 97.6 F Pulse Rate [Left Brachial] 88 Pulse Rate 75 Respiratory Rate 20 Blood Pressure [Left Arm] 126/94 O2 Sat by Pulse Oximetry 97 Intake and Output: Intake & Output 06/03/16 06/04/16 06/05/16 06/06/16 11:59 11:59 11:59 11:59 Intake Total 1403 1650 1540 Output Total 300 Balance 1103 1650 1540 - Physical Exam Oriented: Person Eyes: Normal Ear: Normal Nose: Normal Throat: Dry Respiratory: Wheezes (LOWER EXP) Cardiovascular: Normal : Normal Auscultation: Bowel Sounds: Normal Tenderness: Epigastric Skin: Decreased Turgur Musculoskeletal: Back:Thoracic, Back:Lumbar Affect: Anxious Speech Pattern: Clear, Appropriate - Laboratory and Diagnostics Result Diagrams: 06/05/16 03:20 06/05/16 03:20 Labs: 06/02/16 09:40 Blood Blood Culture - Preliminary 06/02/16 09:10 Blood Blood Culture - Preliminary Laboratory WBC 6.6 X10^3/uL (3.6-10.0) 06/05/16 03:20 RBC 3.27 X10^6/uL (3.5-5.4) L 06/05/16 03:20 Hgb 9.1 g/dL (12.0-16.0) L 06/05/16 03:20 Hct 27.9 % (36.0-47.0) L 06/05/16 03:20 MCV 85.3 fL (80.0-100.0) 06/05/16 03:20 MCH 27.9 pg (27.0-34.0) 06/05/16 03:20 MCHC 32.8 g/dL (33.0-35.0) L 06/05/16 03:20 RDW 14.6 % (11.6-16.5) 06/05/16 03:20 Plt Count 117 X10^3/uL (150.0-450.0) L 06/05/16 03:20 Plt Count Comment Cancelled 06/01/16 14:25 MPV 10.8 fL (7.4-11.0) 06/05/16 03:20 Neut % 46.0 % (42.0-75.0) 06/05/16 03:20 Lymph % 41.6 % (21.0-51.0) 06/05/16 03:20 [place] % 9.9 % (0.0-13.0) 06/05/16 03:20 Eos % 2.1 % (0.9-2.9) 06/05/16 03:20 Baso % 0.4 % (0.2-1.0) 06/05/16 03:20 Neut # 3.1 x10^3/uL (2.2-4.8) 06/05/16 03:20 Lymph # 2.8 X10^3/uL (1.3-2.9) 06/05/16 03:20 [place] # 0.7 x10^3/uL (0.3-0.8) 06/05/16 03:20 Eos # 0.1 x10^3/uL (0.0-0.2) 06/05/16 03:20 Baso # 0.0 X10^3/uL (0.0-0.1) 06/05/16 03:20 Absolute Nucleated RBC 0.1 /100WBC 06/05/16 03:20 Nucleated RBCs Cancelled 06/01/16 14:25 Atypical Lymphocytes Cancelled 06/01/16 14:25 Blast Cells Cancelled 06/01/16 14:25 Smudge Cells Cancelled 06/01/16 14:25 Toxic Granulation Cancelled 06/01/16 14:25 Dohle Bodies Cancelled 06/01/16 14:25 Dalila Rods Cancelled 06/01/16 14:25 Plt Clumps, EDTA Cancelled 06/01/16 14:25 Giant Platelets Cancelled 06/01/16 14:25 Plt Morphology Comment Cancelled 06/01/16 14:25 RBC Morphology Cancelled 06/01/16 14:25 Dimorphic RBCs Cancelled 06/01/16 14:25 Polychromasia Cancelled 06/01/16 14:25 Hypochromasia Cancelled 06/01/16 14:25 Poikilocytosis Cancelled 06/01/16 14:25 Basophilic Stippling Cancelled 06/01/16 14:25 Anisocytosis Cancelled 06/01/16 14:25 Microcytosis Cancelled 06/01/16 14:25 Macrocytosis Cancelled 06/01/16 14:25 Spherocytes Cancelled 06/01/16 14:25 Pappenheimer Bodies Cancelled 06/01/16 14:25 Sickle Cells Cancelled 06/01/16 14:25 Target Cells Cancelled 06/01/16 14:25 Tear Drop Cells Cancelled 06/01/16 14:25 Ovalocytes Cancelled 06/01/16 14:25 Stomatocytes Cancelled 06/01/16 14:25 Helmet Cells Cancelled 06/01/16 14:25 Driscoll-[place] Bodies Cancelled 06/01/16 14:25 [place] Rings Cancelled 06/01/16 14:25 Freddie Cells Cancelled 06/01/16 14:25 Crenated Cell Cancelled 06/01/16 14:25 Acanthocytes (Spur) Cancelled 06/01/16 14:25 Rouleaux Cancelled 06/01/16 14:25 Schistocytes Cancelled 06/01/16 14:25 Sodium 142 mmol/L (136-145) 06/05/16 03:20 Corrected Sodium TNP 06/05/16 03:20 Potassium 3.6 mmol/L (3.5-5.1) 06/05/16 03:20 Chloride 107 mmol/L (98-107) 06/05/16 03:20 Carbon Dioxide 29.1 mmol/L (21-32) 06/05/16 03:20 BUN 12 mg/dL (7-18) 06/05/16 03:20 Creatinine 0.84 mg/dL (0.55-1.02) 06/05/16 03:20 Est GFR (MDRD) Af Amer > 60 (>60) 06/05/16 03:20 Est GFR (MDRD) Non-Af > 60 (>60) 06/05/16 03:20 Glucose 83 mg/dL (65-99) 06/05/16 03:20 Hemoglobin A1c 6.6 % (4.5-6.2) H 06/01/16 14:25 Calcium 7.8 mg/dL (8.5-10.1) L 06/05/16 03:20 Corrected Calcium 8.8 mg/dL (8.5-10.1) 06/05/16 03:20 Magnesium 1.7 mg/dL (1.7-2.9) 06/01/16 14:25 Total Bilirubin 0.20 mg/dL (0.2-1.0) 06/05/16 03:20 AST 11 Units/L (15-37) L 06/05/16 03:20 ALT 13 Units/L (12-78) 06/05/16 03:20 Alkaline Phosphatase 33 Units/L (46-116) L 06/05/16 03:20 Total Protein 5.8 g/dL (6.4-8.2) L 06/05/16 03:20 Albumin 2.7 g/dL (3.4-5.0) L 06/05/16 03:20 Globulin 3.1 g/dL (2.5-4.5) 06/05/16 03:20 Albumin/Globulin Ratio 0.9 Ratio (1.1-2.1) L 06/05/16 03:20 Specimen Type Clean catch urine 06/02/16 13:00 Urine Color Yellow (YELLOW) 06/02/16 13:00 Urine Appearance Clear (CLEAR) 06/02/16 13:00 Urine pH 6.5 (5.0 - 8.0) 06/02/16 13:00 Ur Specific [place] 1.010 (1.000-1.030) 06/02/16 13:00 Urine Protein Negative (NEGATIVE) 06/02/16 13:00 Urine Glucose (UA) Negative (NEGATIVE) 06/02/16 13:00 Urine Ketones Negative (NEGATIVE) 06/02/16 13:00 Urine Occult Blood Negative (NEGATIVE) 06/02/16 13:00 Urine Nitrite Negative (NEGATIVE) 06/02/16 13:00 Urine Bilirubin Negative (NEGATIVE) 06/02/16 13:00 Urine Urobilinogen Normal (NORMAL) 06/02/16 13:00 Ur Leukocyte Esterase 1+ (NEGATIVE) 06/02/16 13:00 Urine RBC 0 /HPF (NEGATIVE) 06/02/16 13:00 Urine WBC 0-2 /HPF (NEGATIVE) 06/02/16 13:00 Ur Squamous Epith Cells Few /HPF (NEGATIVE) 06/02/16 13:00 Amorphous Sediment Trace /HPF (NEGATIVE) 06/02/16 13:00 Urine Bacteria Negative /HPF (NEGATIVE) 06/02/16 13:00 Ur Culture Indicated? No/not indicated 06/02/16 13:00 - Plan (1) COPD (chronic obstructive pulmonary disease) with acute bronchitis Status: Acute Plan: RESP CONSULT, IV ATBX. REPEAT AM LABS (2) Abdominal pain Status: Acute Qualifiers: Abdominal location: A Plan: AM LABS,. IV ATBX AND IV HYDRATION. STOOL STUDIES. MONITOR (3) Diarrhea Status: Acute Qualifiers: Diarrhea type: D (4) Weakness Status: Acute Plan: SUPPORTIVE CARE, PT, DISCUSSED RESIDENTIAL PLACEMENT (5) Altered mental status Status: Acute Qualifiers: Altered mental status type: A Coma depth: C Coma timing: C Plan: R/O INFECTIOUS PROCESS, IV HYDRATION, SUPPORTIVE CARE, PT
[2016-06-05] MEDS: SNACK - Diabetic Appropriate PO SCH ×2 (20:39)
[2016-06-05] MEDS: NORCO 5/325 MG TAB PO PRN (20:45)
[2016-06-05] MEDS: NS 1000 ML 1,000 ML IV SCH (23:26)
[2016-06-06] MEDS: NEURONTIN CAP 300 MG PO SCH ×4 (06:02→22:11)
[2016-06-06 06:08] LABS: BASOPHILS # (AUTO) 0.1 X10^3/uL (0.0-0.1); BASOPHILS % (AUTO) 0.8 % (0.2-1.0); EOSINOPHILS # (AUTO) 0.2 x10^3/uL (0.0-0.2); EOSINOPHILS % (AUTO) 2.7 % (0.9-2.9); HEMATOCRIT 30.2 % (36.0-47.0); HEMOGLOBIN 9.9 g/dL (12.0-16.0); LYMPHOCYTES % (AUTO) 45.4 % (21.0-51.0); MEAN CORPUSCULAR HGB CONC 32.7 g/dL (33.0-35.0); MEAN CORPUSCULAR VOLUME 85.7 fL (80.0-100.0); MEAN PLATELET VOLUME 10.2 fL (7.4-11.0); MONOCYTES # (AUTO) 0.6 x10^3/uL (0.3-0.8); MONOCYTES % (AUTO) 8.7 % (0.0-13.0); NEUTROPHILS # (AUTO) 2.8 x10^3/uL (2.2-4.8); NEUTROPHILS % (AUTO) 42.4 % (42.0-75.0); PLATELET COUNT 116 X10^3/uL (150.0-450.0); RED BLOOD COUNT 3.52 X10^6/uL (3.5-5.4); WHITE BLOOD COUNT 6.6 X10^3/uL (3.6-10.0)
[2016-06-06 06:41] LABS: ALANINE AMINOTRANSFERASE 15 Units/L (12-78); ALBUMIN 2.7 g/dL (3.4-5.0); ALKALINE PHOSPHATASE 34 Units/L (46-116); ASPARTATE AMINO TRANSFERASE 12 Units/L (15-37); BLOOD UREA NITROGEN 18 mg/dL (7-18); CHLORIDE 106 mmol/L (98-107); COR NA(FOR HYPERGLY) 143 mmol/L (136-145); CREATININE 0.81 mg/dL (0.55-1.02); GLUCOSE 135 mg/dL (65-99); SODIUM 142 mmol/L (136-145); TOTAL PROTEIN 5.9 g/dL (6.4-8.2); eGFR BLACK RACES > 60 (>60); eGFR NON BLACK RACES > 60 (>60)
[2016-06-06] MEDS: DUONEB 0.5 MG/3 MG NEB SCH ×4 (08:11→20:09)
[2016-06-06] MEDS: ROCEPHIN VIAL 1 GM 1 GM in NS 50 ML IV + SPIKE MINIBAG* 50 ML IV SCH (09:32)
[2016-06-06] MEDS: ROBITUSSIN (PLAIN) PO SCH ×4 (09:38→20:39)
[2016-06-06] MEDS: ZOCOR TAB 20 MG PO SCH ×2 (09:39→20:35)
[2016-06-06] MEDS: ARICEPT TAB 10 MG PO SCH (09:39)
[2016-06-06] MEDS: ZESTRIL TAB 40 MG PO SCH (09:39)
[2016-06-06] MEDS: RisperDAL TAB 1 MG PO SCH (09:39)
[2016-06-06] MEDS: SYNTHROID 25 mcg TAB PO SCH (09:39)
[2016-06-06] MEDS: AMARYL TAB 4 MG PO SCH (09:39)
[2016-06-06] MEDS: PriLOSEC PO SCH (09:39)
[2016-06-06] MEDS: NORCO 5/325 MG TAB PO PRN (20:34)
[2016-06-06] MEDS: NS 1000 ML 1,000 ML IV SCH (20:34)
[2016-06-06] MEDS: SNACK - Diabetic Appropriate PO SCH ×2 (20:39)
[2016-06-07] MEDS: NEURONTIN CAP 300 MG PO SCH ×3 (05:46→21:08)
[2016-06-07 07:28] LABS: BASOPHILS % (AUTO) 0.6 % (0.2-1.0); EOSINOPHILS # (AUTO) 0.2 x10^3/uL (0.0-0.2); EOSINOPHILS % (AUTO) 2.8 % (0.9-2.9); HEMATOCRIT 32.6 % (36.0-47.0); HEMOGLOBIN 10.6 g/dL (12.0-16.0); LYMPHOCYTES # (AUTO) 2.9 X10^3/uL (1.3-2.9); LYMPHOCYTES % (AUTO) 47.6 % (21.0-51.0); MEAN CORPUSCULAR HGB CONC 32.6 g/dL (33.0-35.0); MEAN CORPUSCULAR VOLUME 85.7 fL (80.0-100.0); MEAN PLATELET VOLUME 10.5 fL (7.4-11.0); MONOCYTES # (AUTO) 0.5 x10^3/uL (0.3-0.8); MONOCYTES % (AUTO) 8.3 % (0.0-13.0); NEUTROPHILS # (AUTO) 2.5 x10^3/uL (2.2-4.8); NEUTROPHILS % (AUTO) 40.7 % (42.0-75.0); PLATELET COUNT 130 X10^3/uL (150.0-450.0); RED CELL DISTRIBUTION WIDTH 15.1 % (11.6-16.5); WHITE BLOOD COUNT 6.1 X10^3/uL (3.6-10.0)
[2016-06-07 07:38] LABS: ALANINE AMINOTRANSFERASE 15 Units/L (12-78); ALBUMIN 2.8 g/dL (3.4-5.0); ALKALINE PHOSPHATASE 36 Units/L (46-116); ASPARTATE AMINO TRANSFERASE 16 Units/L (15-37); BLOOD UREA NITROGEN 20 mg/dL (7-18); CALCIUM 8.2 mg/dL (8.5-10.1); CARBON DIOXIDE 32.2 mmol/L (21-32); CHLORIDE 105 mmol/L (98-107); COR CA(FOR HYPOALB) 9.2 mg/dL (8.5-10.1); COR NA(FOR HYPERGLY) 143 mmol/L (136-145); CREATININE 0.86 mg/dL (0.55-1.02); GLUCOSE 127 mg/dL (65-99); SODIUM 142 mmol/L (136-145); TOTAL PROTEIN 6.4 g/dL (6.4-8.2); eGFR BLACK RACES > 60 (>60); eGFR NON BLACK RACES > 60 (>60)
[2016-06-07] MEDS: DUONEB 0.5 MG/3 MG NEB SCH ×3 (08:08→16:21)
[2016-06-07] MEDS: ROBITUSSIN (PLAIN) PO SCH ×3 (08:42→14:10)
[2016-06-07] MEDS: ROCEPHIN VIAL 1 GM 1 GM in NS 50 ML IV + SPIKE MINIBAG* 50 ML IV SCH (08:43)
[2016-06-07] MEDS: ZOCOR TAB 20 MG PO SCH ×2 (08:43→21:07)
[2016-06-07] MEDS: ZESTRIL TAB 40 MG PO SCH (08:43)
[2016-06-07] MEDS: ARICEPT TAB 10 MG PO SCH (08:43)
[2016-06-07] MEDS: SYNTHROID 25 mcg TAB PO SCH (08:43)
[2016-06-07] MEDS: RisperDAL TAB 1 MG PO SCH (08:43)
[2016-06-07] MEDS: AMARYL TAB 4 MG PO SCH (08:43)
[2016-06-07] MEDS: PriLOSEC PO SCH (08:43)
[2016-06-07] MEDS: MILK OF MAGNESIA PO PRN (14:07)
[2016-06-07] MEDS: COLACE CAP 100 MG PO PRN (14:07)
[2016-06-07] MEDS: NS 1000 ML 1,000 ML IV SCH (16:12)
[2016-06-07 16:24] LABS: CRYPTOSPORIDIUM PARVUM ANTIGEN NEGATIVE (NEGATIVE); GIARDIA LAMBLIA ANTIGEN NEGATIVE (NEGATIVE)
[2016-06-07] MEDS ORDERED: DUONEB 0.5 MG/3 MG NEB PRN (16:26)
[2016-06-07] MEDS: HumuLIN R SUBCUT PRN (17:18)
[2016-06-07] MEDS: NORCO 5/325 MG TAB PO PRN (21:07)
[2016-06-07] MEDS: SNACK - Diabetic Appropriate PO SCH (21:07)
[2016-06-08 05:09] LABS: BASOPHILS % (AUTO) 0.4 % (0.2-1.0); EOSINOPHILS # (AUTO) 0.2 x10^3/uL (0.0-0.2); EOSINOPHILS % (AUTO) 2.4 % (0.9-2.9); HEMATOCRIT 29.4 % (36.0-47.0); HEMOGLOBIN 9.6 g/dL (12.0-16.0); LYMPHOCYTES # (AUTO) 2.9 X10^3/uL (1.3-2.9); LYMPHOCYTES % (AUTO) 41.8 % (21.0-51.0); MEAN CORPUSCULAR HEMOGLOBIN 28.1 pg (27.0-34.0); MEAN CORPUSCULAR HGB CONC 32.8 g/dL (33.0-35.0); MEAN CORPUSCULAR VOLUME 85.8 fL (80.0-100.0); MEAN PLATELET VOLUME 10.2 fL (7.4-11.0); MONOCYTES # (AUTO) 0.6 x10^3/uL (0.3-0.8); MONOCYTES % (AUTO) 8.3 % (0.0-13.0); NEUTROPHILS # (AUTO) 3.3 x10^3/uL (2.2-4.8); NEUTROPHILS % (AUTO) 47.1 % (42.0-75.0); PLATELET COUNT 117 X10^3/uL (150.0-450.0); RED BLOOD COUNT 3.42 X10^6/uL (3.5-5.4); WHITE BLOOD COUNT 6.9 X10^3/uL (3.6-10.0)
[2016-06-08 05:18] LABS: ALANINE AMINOTRANSFERASE 15 Units/L (12-78); ALBUMIN 2.5 g/dL (3.4-5.0); ALKALINE PHOSPHATASE 34 Units/L (46-116); ASPARTATE AMINO TRANSFERASE 16 Units/L (15-37); BLOOD UREA NITROGEN 23 mg/dL (7-18); CALCIUM 7.8 mg/dL (8.5-10.1); CARBON DIOXIDE 30.6 mmol/L (21-32); CHLORIDE 107 mmol/L (98-107); COR NA(FOR HYPERGLY) 143 mmol/L (136-145); CREATININE 0.95 mg/dL (0.55-1.02); GLUCOSE 154 mg/dL (65-99); SODIUM 142 mmol/L (136-145); TOTAL PROTEIN 5.7 g/dL (6.4-8.2); eGFR BLACK RACES > 60 (>60); eGFR NON BLACK RACES > 60 (>60)
[2016-06-08] MEDS: NEURONTIN CAP 300 MG PO SCH ×3 (05:52→22:32)
[2016-06-08] MEDS: NS 1000 ML 1,000 ML IV SCH ×2 (09:01→15:46)
[2016-06-08] MEDS: ROCEPHIN VIAL 1 GM 1 GM in NS 50 ML IV + SPIKE MINIBAG* 50 ML IV SCH (09:04)
[2016-06-08] MEDS: ARICEPT TAB 10 MG PO SCH (09:08)
[2016-06-08] MEDS: AMARYL TAB 4 MG PO SCH (09:08)
[2016-06-08] MEDS: PriLOSEC PO SCH (09:09)
[2016-06-08] MEDS: ZOCOR TAB 20 MG PO SCH ×2 (09:09→22:32)
[2016-06-08] MEDS: SYNTHROID 25 mcg TAB PO SCH (09:09)
[2016-06-08] MEDS: ZESTRIL TAB 40 MG PO SCH (09:09)
[2016-06-08] MEDS: RisperDAL TAB 1 MG PO SCH (09:09)
[2016-06-08] MEDS: HumuLIN R SUBCUT PRN ×2 (17:01→22:39)
--- NOTE | 2016-06-08 17:08 | PCM.PROG ---
Progress Note - Progress Note for Day of Date: 06/08/16 - Subjective Subjective: 80-YEAR-OLD BLACK FEMALE WHO WAS ADMITTED ON wednesday WITH COMPLAINTS OF NAUSEA VOMITING DIARRHEA AND GENERALIZED WEAKNESS. pATIENT ALSO HAS A HISTORY OF MILD copd AND COMPLAINTS OF INCREASED PRODUCTIVE COUGH AND CHEST CONGESTION. pATIENT WAS STARTED ON iv ANTIBIOTICS AND RESPIRATORY THERAPY. pATIENT REPORTS resolved NAUSEA AND VOMITING. wE'LL CONTINUE iv ANTIBIOTICS AND RESPIRATORY THERAPY. dISCUSSED REHABILITATION PLACEMENT WITH CASE MANAGEMENT, [facility] PLACEMENT IS PENDING - Past Medical Family Social History Past Med/Fam/Surg Hx: No changes since H&P Allergies: Allergies No Known Drug Allergy Allergy (Verified 06/01/16 13:56) - Review of Systems ROS: No change since H&P - Vital Signs and I&O's Vital Signs: Temperature 97.7 F Pulse Rate [Right Brachial] 68 Pulse Rate [Left Brachial] 69 Pulse Rate 78 Respiratory Rate 20 Blood Pressure [Left Arm] 103/52 O2 Sat by Pulse Oximetry 100 Intake and Output: Intake & Output 06/06/16 06/07/16 06/08/16 06/09/16 11:59 11:59 11:59 11:59 Intake Total 2013 943 1495 990 Balance 2013 943 1495 990 - Physical Exam Oriented: Person Eyes: Normal Ear: Normal Nose: Normal Throat: Dry Respiratory: Wheezes (LOWER EXP) Cardiovascular: Normal : Normal Auscultation: Bowel Sounds: Normal Tenderness: Epigastric Skin: Decreased Turgur Musculoskeletal: Back:Thoracic, Back:Lumbar Affect: Anxious Speech Pattern: Clear, Appropriate - Laboratory and Diagnostics Result Diagrams: 06/08/16 04:15 06/08/16 04:15 Labs: 06/07/16 15:12 Stool Stool Culture - Preliminary 06/07/16 15:12 Stool - Final 06/02/16 09:40 Blood Blood Culture - Final 06/02/16 09:10 Blood Blood Culture - Final Laboratory WBC 6.9 X10^3/uL (3.6-10.0) 06/08/16 04:15 RBC 3.42 X10^6/uL (3.5-5.4) L 06/08/16 04:15 Hgb 9.6 g/dL (12.0-16.0) L 06/08/16 04:15 Hct 29.4 % (36.0-47.0) L 06/08/16 04:15 MCV 85.8 fL (80.0-100.0) 06/08/16 04:15 MCH 28.1 pg (27.0-34.0) 06/08/16 04:15 MCHC 32.8 g/dL (33.0-35.0) L 06/08/16 04:15 RDW 15.0 % (11.6-16.5) 06/08/16 04:15 Plt Count 117 X10^3/uL (150.0-450.0) L 06/08/16 04:15 Plt Count Comment Cancelled 06/01/16 14:25 MPV 10.2 fL (7.4-11.0) 06/08/16 04:15 Neut % 47.1 % (42.0-75.0) 06/08/16 04:15 Lymph % 41.8 % (21.0-51.0) 06/08/16 04:15 [place] % 8.3 % (0.0-13.0) 06/08/16 04:15 Eos % 2.4 % (0.9-2.9) 06/08/16 04:15 Baso % 0.4 % (0.2-1.0) 06/08/16 04:15 Neut # 3.3 x10^3/uL (2.2-4.8) 06/08/16 04:15 Lymph # 2.9 X10^3/uL (1.3-2.9) 06/08/16 04:15 [place] # 0.6 x10^3/uL (0.3-0.8) 06/08/16 04:15 Eos # 0.2 x10^3/uL (0.0-0.2) 06/08/16 04:15 Baso # 0.0 X10^3/uL (0.0-0.1) 06/08/16 04:15 Absolute Nucleated RBC 0.1 /100WBC 06/08/16 04:15 Nucleated RBCs Cancelled 06/01/16 14:25 Atypical Lymphocytes Cancelled 06/01/16 14:25 Blast Cells Cancelled 06/01/16 14:25 Smudge Cells Cancelled 06/01/16 14:25 Toxic Granulation Cancelled 06/01/16 14:25 Dohle Bodies Cancelled 06/01/16 14:25 Dalila Rods Cancelled 06/01/16 14:25 Plt Clumps, EDTA Cancelled 06/01/16 14:25 Giant Platelets Cancelled 06/01/16 14:25 Plt Morphology Comment Cancelled 06/01/16 14:25 RBC Morphology Cancelled 06/01/16 14:25 Dimorphic RBCs Cancelled 06/01/16 14:25 Polychromasia Cancelled 06/01/16 14:25 Hypochromasia Cancelled 06/01/16 14:25 Poikilocytosis Cancelled 06/01/16 14:25 Basophilic Stippling Cancelled 06/01/16 14:25 Anisocytosis Cancelled 06/01/16 14:25 Microcytosis Cancelled 06/01/16 14:25 Macrocytosis Cancelled 06/01/16 14:25 Spherocytes Cancelled 06/01/16 14:25 Pappenheimer Bodies Cancelled 06/01/16 14:25 Sickle Cells Cancelled 06/01/16 14:25 Target Cells Cancelled 06/01/16 14:25 Tear Drop Cells Cancelled 06/01/16 14:25 Ovalocytes Cancelled 06/01/16 14:25 Stomatocytes Cancelled 06/01/16 14:25 Helmet Cells Cancelled 06/01/16 14:25 Driscoll-[place] Bodies Cancelled 06/01/16 14:25 [place] Rings Cancelled 06/01/16 14:25 [place] Cells Cancelled 06/01/16 14:25 Crenated Cell Cancelled 06/01/16 14:25 Acanthocytes (Spur) Cancelled 06/01/16 14:25 Rouleaux Cancelled 06/01/16 14:25 Schistocytes Cancelled 06/01/16 14:25 Sodium 142 mmol/L (136-145) 06/08/16 04:15 Corrected Sodium 143 mmol/L (136-145) 06/08/16 04:15 Potassium 4.2 mmol/L (3.5-5.1) 06/08/16 04:15 Chloride 107 mmol/L (98-107) 06/08/16 04:15 Carbon Dioxide 30.6 mmol/L (21-32) 06/08/16 04:15 BUN 23 mg/dL (7-18) H 06/08/16 04:15 Creatinine 0.95 mg/dL (0.55-1.02) 06/08/16 04:15 Est GFR (MDRD) Af Amer > 60 (>60) 06/08/16 04:15 Est GFR (MDRD) Non-Af > 60 (>60) 06/08/16 04:15 Glucose 154 mg/dL (65-99) H 06/08/16 04:15 Hemoglobin A1c 6.6 % (4.5-6.2) H 06/01/16 14:25 Calcium 7.8 mg/dL (8.5-10.1) L 06/08/16 04:15 Corrected Calcium 9.0 mg/dL (8.5-10.1) 06/08/16 04:15 Magnesium 1.7 mg/dL (1.7-2.9) 06/01/16 14:25 Total Bilirubin 0.20 mg/dL (0.2-1.0) 06/08/16 04:15 AST 16 Units/L (15-37) 06/08/16 04:15 ALT 15 Units/L (12-78) 06/08/16 04:15 Alkaline Phosphatase 34 Units/L (46-116) L 06/08/16 04:15 Total Protein 5.7 g/dL (6.4-8.2) L 06/08/16 04:15 Albumin 2.5 g/dL (3.4-5.0) L 06/08/16 04:15 Globulin 3.2 g/dL (2.5-4.5) 06/08/16 04:15 Albumin/Globulin Ratio 0.8 Ratio (1.1-2.1) L 06/08/16 04:15 Specimen Type Clean catch urine 06/02/16 13:00 Urine Color Yellow (YELLOW) 06/02/16 13:00 Urine Appearance Clear (CLEAR) 06/02/16 13:00 Urine pH 6.5 (5.0 - 8.0) 06/02/16 13:00 Ur Specific [place] 1.010 (1.000-1.030) 06/02/16 13:00 Urine Protein Negative (NEGATIVE) 06/02/16 13:00 Urine Glucose (UA) Negative (NEGATIVE) 06/02/16 13:00 Urine Ketones Negative (NEGATIVE) 06/02/16 13:00 Urine Occult Blood Negative (NEGATIVE) 06/02/16 13:00 Urine Nitrite Negative (NEGATIVE) 06/02/16 13:00 Urine Bilirubin Negative (NEGATIVE) 06/02/16 13:00 Urine Urobilinogen Normal (NORMAL) 06/02/16 13:00 Ur Leukocyte Esterase 1+ (NEGATIVE) 06/02/16 13:00 Urine RBC 0 /HPF (NEGATIVE) 06/02/16 13:00 Urine WBC 0-2 /HPF (NEGATIVE) 06/02/16 13:00 Ur Squamous Epith Cells Few /HPF (NEGATIVE) 06/02/16 13:00 Amorphous Sediment Trace /HPF (NEGATIVE) 06/02/16 13:00 Urine Bacteria Negative /HPF (NEGATIVE) 06/02/16 13:00 Ur Culture Indicated? No/not indicated 06/02/16 13:00 Stool Description 200g,formed,soft,clemens 06/07/16 15:12 Stl Occult Blood (IFOB) Negative (NEGATIVE) 06/07/16 15:12 Stool for White Cells No wbc's seen (None) 06/07/16 15:12 Stl C. diff Tox B Gene Negative (NEGATIVE) 06/07/16 15:12 Stl C. diff 027-NAP1-BI Negative (NEGATIVE) 06/07/16 15:12 Cryptosporid parvum Ag Negative (NEGATIVE) 06/07/16 15:12 E. histolytica Antigen Negative (NEGATIVE) 06/07/16 15:12 Giardia lamblia Ag Negative (NEGATIVE) 06/07/16 15:12 - Plan (1) COPD (chronic obstructive pulmonary disease) with acute bronchitis Status: Acute Plan: RESP CONSULT, IV ATBX. REPEAT AM LABS (2) Abdominal pain Status: Acute Qualifiers: Abdominal location: A Plan: AM LABS,. IV ATBX AND IV HYDRATION. STOOL STUDIES. MONITOR (3) Diarrhea Status: Acute Qualifiers: Diarrhea type: D (4) Weakness Status: Acute Plan: SUPPORTIVE CARE, PT, DISCUSSED [facility] PLACEMENT (5) Altered mental status Status: Acute Qualifiers: Altered mental status type: A Coma depth: C Coma timing: C Plan: R/O INFECTIOUS PROCESS, IV HYDRATION, SUPPORTIVE CARE, PT
[2016-06-08] MEDS: SNACK - Diabetic Appropriate PO SCH (22:31)
[2016-06-09] MEDS: NEURONTIN CAP 300 MG PO SCH ×3 (05:27→22:02)
[2016-06-09] MEDS: COLACE CAP 100 MG PO PRN (05:27)
[2016-06-09] MEDS: MILK OF MAGNESIA PO PRN (05:27)
[2016-06-09] MEDS: SYNTHROID 25 mcg TAB PO SCH (09:22)
[2016-06-09] MEDS: ROCEPHIN VIAL 1 GM 1 GM in NS 50 ML IV + SPIKE MINIBAG* 50 ML IV SCH (09:22)
[2016-06-09] MEDS: ZESTRIL TAB 40 MG PO SCH (09:22)
[2016-06-09] MEDS: RisperDAL TAB 1 MG PO SCH (09:22)
[2016-06-09] MEDS: AMARYL TAB 4 MG PO SCH (09:22)
[2016-06-09] MEDS: PriLOSEC PO SCH (09:22)
[2016-06-09] MEDS: ZOCOR TAB 20 MG PO SCH ×2 (09:23→22:02)
[2016-06-09] MEDS: ARICEPT TAB 10 MG PO SCH (09:23)
[2016-06-09] MEDS: HumuLIN R SUBCUT PRN (13:58)
--- NOTE | 2016-06-09 18:35 | PCM.PROG ---
Progress Note - Progress Note for Day of Date: 06/09/16 - Subjective Subjective: 80-YEAR-OLD BLACK FEMALE WHO WAS ADMITTED ON wednesday WITH COMPLAINTS OF NAUSEA VOMITING DIARRHEA AND GENERALIZED WEAKNESS. PT AB AND WEAKNESS IMPROVED SINCE ADMISSION. MILD IMPROVEMENT IN APPETITE. PLAN TO TRANSFER TO [facility] ON WEDNESDAY. - Past Medical Family Social History Past Med/Fam/Surg Hx: No changes since H&P Allergies: Allergies No Known Drug Allergy Allergy (Verified 06/01/16 13:56) - Review of Systems ROS: No change since H&P - Vital Signs and I&O's Vital Signs: Temperature 98.1 F Pulse Rate [Right Brachial] 74 Pulse Rate [Left Brachial] 65 Pulse Rate 78 Respiratory Rate 20 Blood Pressure [Right Arm] 135/64 Blood Pressure [Left Arm] 167/75 O2 Sat by Pulse Oximetry 96 Intake and Output: Intake & Output 06/07/16 06/08/16 06/09/16 06/10/16 11:59 11:59 11:59 11:59 Intake Total 943 1495 2314 1020 Balance 943 1495 2314 1020 - Physical Exam Oriented: Person Eyes: Normal Ear: Normal Nose: Normal Throat: Dry Respiratory: Wheezes (LOWER EXP) Cardiovascular: Normal : Normal Auscultation: Bowel Sounds: Normal Tenderness: Epigastric Skin: Decreased Turgur Musculoskeletal: Back:Thoracic, Back:Lumbar Affect: Anxious Speech Pattern: Clear, Appropriate - Laboratory and Diagnostics Result Diagrams: 06/08/16 04:15 06/08/16 04:15 Labs: 06/07/16 15:12 Stool Stool Culture - Final 06/07/16 15:12 Stool - Final 06/02/16 09:40 Blood Blood Culture - Final 06/02/16 09:10 Blood Blood Culture - Final Laboratory WBC 6.9 X10^3/uL (3.6-10.0) 06/08/16 04:15 RBC 3.42 X10^6/uL (3.5-5.4) L 06/08/16 04:15 Hgb 9.6 g/dL (12.0-16.0) L 06/08/16 04:15 Hct 29.4 % (36.0-47.0) L 06/08/16 04:15 MCV 85.8 fL (80.0-100.0) 06/08/16 04:15 MCH 28.1 pg (27.0-34.0) 06/08/16 04:15 MCHC 32.8 g/dL (33.0-35.0) L 06/08/16 04:15 RDW 15.0 % (11.6-16.5) 06/08/16 04:15 Plt Count 117 X10^3/uL (150.0-450.0) L 06/08/16 04:15 Plt Count Comment Cancelled 06/01/16 14:25 MPV 10.2 fL (7.4-11.0) 06/08/16 04:15 Neut % 47.1 % (42.0-75.0) 06/08/16 04:15 Lymph % 41.8 % (21.0-51.0) 06/08/16 04:15 [place] % 8.3 % (0.0-13.0) 06/08/16 04:15 Eos % 2.4 % (0.9-2.9) 06/08/16 04:15 Baso % 0.4 % (0.2-1.0) 06/08/16 04:15 Neut # 3.3 x10^3/uL (2.2-4.8) 06/08/16 04:15 Lymph # 2.9 X10^3/uL (1.3-2.9) 06/08/16 04:15 [place] # 0.6 x10^3/uL (0.3-0.8) 06/08/16 04:15 Eos # 0.2 x10^3/uL (0.0-0.2) 06/08/16 04:15 Baso # 0.0 X10^3/uL (0.0-0.1) 06/08/16 04:15 Absolute Nucleated RBC 0.1 /100WBC 06/08/16 04:15 Nucleated RBCs Cancelled 06/01/16 14:25 Atypical Lymphocytes Cancelled 06/01/16 14:25 Blast Cells Cancelled 06/01/16 14:25 Smudge Cells Cancelled 06/01/16 14:25 Toxic Granulation Cancelled 06/01/16 14:25 Dohle Bodies Cancelled 06/01/16 14:25 Dalila Rods Cancelled 06/01/16 14:25 Plt Clumps, EDTA Cancelled 06/01/16 14:25 Giant Platelets Cancelled 06/01/16 14:25 Plt Morphology Comment Cancelled 06/01/16 14:25 RBC Morphology Cancelled 06/01/16 14:25 Dimorphic RBCs Cancelled 06/01/16 14:25 Polychromasia Cancelled 06/01/16 14:25 Hypochromasia Cancelled 06/01/16 14:25 Poikilocytosis Cancelled 06/01/16 14:25 Basophilic Stippling Cancelled 06/01/16 14:25 Anisocytosis Cancelled 06/01/16 14:25 Microcytosis Cancelled 06/01/16 14:25 Macrocytosis Cancelled 06/01/16 14:25 Spherocytes Cancelled 06/01/16 14:25 Pappenheimer Bodies Cancelled 06/01/16 14:25 Sickle Cells Cancelled 06/01/16 14:25 Target Cells Cancelled 06/01/16 14:25 Tear Drop Cells Cancelled 06/01/16 14:25 Ovalocytes Cancelled 06/01/16 14:25 Stomatocytes Cancelled 06/01/16 14:25 Helmet Cells Cancelled 06/01/16 14:25 [place] Bodies Cancelled 06/01/16 14:25 [place] Rings Cancelled 06/01/16 14:25 Freddie Cells Cancelled 06/01/16 14:25 Crenated Cell Cancelled 06/01/16 14:25 Acanthocytes (Spur) Cancelled 06/01/16 14:25 Rouleaux Cancelled 06/01/16 14:25 Schistocytes Cancelled 06/01/16 14:25 Sodium 142 mmol/L (136-145) 06/08/16 04:15 Corrected Sodium 143 mmol/L (136-145) 06/08/16 04:15 Potassium 4.2 mmol/L (3.5-5.1) 06/08/16 04:15 Chloride 107 mmol/L (98-107) 06/08/16 04:15 Carbon Dioxide 30.6 mmol/L (21-32) 06/08/16 04:15 BUN 23 mg/dL (7-18) H 06/08/16 04:15 Creatinine 0.95 mg/dL (0.55-1.02) 06/08/16 04:15 Est GFR (MDRD) Af Amer > 60 (>60) 06/08/16 04:15 Est GFR (MDRD) Non-Af > 60 (>60) 06/08/16 04:15 Glucose 154 mg/dL (65-99) H 06/08/16 04:15 Hemoglobin A1c 6.6 % (4.5-6.2) H 06/01/16 14:25 Calcium 7.8 mg/dL (8.5-10.1) L 06/08/16 04:15 Corrected Calcium 9.0 mg/dL (8.5-10.1) 06/08/16 04:15 Magnesium 1.7 mg/dL (1.7-2.9) 06/01/16 14:25 Total Bilirubin 0.20 mg/dL (0.2-1.0) 06/08/16 04:15 AST 16 Units/L (15-37) 06/08/16 04:15 ALT 15 Units/L (12-78) 06/08/16 04:15 Alkaline Phosphatase 34 Units/L (46-116) L 06/08/16 04:15 Total Protein 5.7 g/dL (6.4-8.2) L 06/08/16 04:15 Albumin 2.5 g/dL (3.4-5.0) L 06/08/16 04:15 Globulin 3.2 g/dL (2.5-4.5) 06/08/16 04:15 Albumin/Globulin Ratio 0.8 Ratio (1.1-2.1) L 06/08/16 04:15 Specimen Type Clean catch urine 06/02/16 13:00 Urine Color Yellow (YELLOW) 06/02/16 13:00 Urine Appearance Clear (CLEAR) 06/02/16 13:00 Urine pH 6.5 (5.0 - 8.0) 06/02/16 13:00 Ur Specific [place] 1.010 (1.000-1.030) 06/02/16 13:00 Urine Protein Negative (NEGATIVE) 06/02/16 13:00 Urine Glucose (UA) Negative (NEGATIVE) 06/02/16 13:00 Urine Ketones Negative (NEGATIVE) 06/02/16 13:00 Urine Occult Blood Negative (NEGATIVE) 06/02/16 13:00 Urine Nitrite Negative (NEGATIVE) 06/02/16 13:00 Urine Bilirubin Negative (NEGATIVE) 06/02/16 13:00 Urine Urobilinogen Normal (NORMAL) 06/02/16 13:00 Ur Leukocyte Esterase 1+ (NEGATIVE) 06/02/16 13:00 Urine RBC 0 /HPF (NEGATIVE) 06/02/16 13:00 Urine WBC 0-2 /HPF (NEGATIVE) 06/02/16 13:00 Ur Squamous Epith Cells Few /HPF (NEGATIVE) 06/02/16 13:00 Amorphous Sediment Trace /HPF (NEGATIVE) 06/02/16 13:00 Urine Bacteria Negative /HPF (NEGATIVE) 06/02/16 13:00 Ur Culture Indicated? No/not indicated 06/02/16 13:00 Stool Description 200g,formed,soft,clemens 06/07/16 15:12 Stl Occult Blood (IFOB) Negative (NEGATIVE) 06/07/16 15:12 Stool for White Cells No wbc's seen (None) 06/07/16 15:12 Stl C. diff Tox B Gene Negative (NEGATIVE) 06/07/16 15:12 Stl C. diff [id number] Negative (NEGATIVE) 06/07/16 15:12 Cryptosporid parvum Ag Negative (NEGATIVE) 06/07/16 15:12 E. histolytica Antigen Negative (NEGATIVE) 06/07/16 15:12 Giardia lamblia Ag Negative (NEGATIVE) 06/07/16 15:12 - Plan (1) COPD (chronic obstructive pulmonary disease) with acute bronchitis Status: Acute Plan: IMPROVED, CONTINUE WITH CURRENT MEDICATION (2) Abdominal pain Status: Acute Qualifiers: Abdominal location: A Plan: STOOL STUDIES WNL. MONITOR (3) Diarrhea Status: Acute Qualifiers: Diarrhea type: D (4) Weakness Status: Acute Plan: SUPPORTIVE CARE, PT, DISCUSSED CUSTODIAL PLACEMENT, KEN GOULD ACCEPTED PT, BED PLACEMENT PENDING (5) Altered mental status Status: Acute Qualifiers: Altered mental status type: A Coma depth: C Coma timing: C Plan: R/O INFECTIOUS PROCESS, IV HYDRATION, SUPPORTIVE CARE, PT
[2016-06-09] MEDS: SNACK - Diabetic Appropriate PO SCH (20:00)
[2016-06-09] MEDS: NS 1000 ML 1,000 ML IV SCH (22:04)
[2016-06-10] MEDS: NEURONTIN CAP 300 MG PO SCH ×2 (05:23→13:48)
[2016-06-10] MEDS: ROCEPHIN VIAL 1 GM 1 GM in NS 50 ML IV + SPIKE MINIBAG* 50 ML IV SCH (08:35)
[2016-06-10] MEDS: ZOCOR TAB 20 MG PO SCH (08:35)
[2016-06-10] MEDS: PriLOSEC PO SCH (08:35)
[2016-06-10] MEDS: ARICEPT TAB 10 MG PO SCH (08:35)
[2016-06-10] MEDS: RisperDAL TAB 1 MG PO SCH (08:36)
[2016-06-10] MEDS: AMARYL TAB 4 MG PO SCH (08:36)
[2016-06-10] MEDS: ZESTRIL TAB 40 MG PO SCH (08:36)
[2016-06-10] MEDS: SYNTHROID 25 mcg TAB PO SCH (08:36)
[2016-06-10 12:22] VITALS: BP 141/65
[2016-06-10] MEDS: HumuLIN R SUBCUT PRN (12:37)
[2016-06-10] MEDS: NS 1000 ML 1,000 ML IV SCH (15:06)
== END 2016-06-10 16:20 | DRG 202 ==
LOC: MED/SURG 12:15 → OBSVTOIN 06-03 08:30 → UNDODISIN 06-03 11:20
PROVIDERS: ADMIT Internal Medicine; ATTEND Internal Medicine
DX: J20.8 Acute bronchitis due to other specified organisms (principal); J44.1 Chronic obstructive pulmonary disease with (acute) exacerbation; R41.82 Altered mental status, unspecified; R53.1 Weakness; E11.649 Type 2 diabetes mellitus with hypoglycemia without coma; E86.0 Dehydration; K21.9 Gastro-esophageal reflux disease without esophagitis; I10 Essential (primary) hypertension; M13.89 Other specified arthritis, multiple sites; R19.7 Diarrhea, unspecified; R10.84 Generalized abdominal pain; R26.89 Other abnormalities of gait and mobility
CPT/HCPCS: 36415; 71010; 80053; 81001; 82270; 83036; 83735; 85025; 87040; 87045; 87205; 87328; 87329; 87336; 87427; 87493; 87899; 94640; 97535; A4222; G8978; G8979; G8987; G8988; G0378; J0696; J1815; J7620